=== PATIENT | female | born 1950 | race Caucasian/White ===

== ENCOUNTER → 2017-01-17 | Outpatient (CLI) | payer BC ==
--- NOTE | 2017-01-17 21:08 | KCIC ---
EXAM: Cervical spine MRI without contrast. HISTORY: Pain. TECHNIQUE: Multiplanar, multisequence magnetic resonance imaging of the cervical spine was performed without contrast. COMPARISON: None. FINDINGS: There is a minimal anterolisthesis of C3 on C4 and C4 on C5 and slight reversal of cervical lordosis. The vertebral bodies are normal in height. There is slight disc space narrowing at C5-C6. There are few hemangiomas. No suspicious osseous lesion is seen. The skull base and posterior fossa are unremarkable. There is a prominent central canal within the cervical spinal cord. No hydrosyringomyelia or alternative spinal cord lesion is seen. At C2-C3, there is mild left facet arthropathy. There is no stenosis. At C3-C4, there is no stenosis. At C4-C5, there is no stenosis. At C5-C6, there is a minimal disc bulge and endplate remodeling. There is uncovertebral arthropathy. There is mild bilateral foraminal stenosis. At C6-C7, there is no stenosis. There is a tiny dilated nerve root sheath cyst within the left neural foramen. IMPRESSION: Minimal degenerative change within the cervical spine, described in detail above. This results in mild bilateral foraminal stenosis at C5-C6. Electronically signed by: Gia Isabel MD (01/17/2017 9:05 PM) [facility]
== END | disposition home or self-care (01) ==
LOC: KCIC MRI 16:32
PROVIDERS: ATTEND Physician Assistant Medical
DX: M48.02 Spinal stenosis, cervical region (principal)
CPT/HCPCS: 72141

== ENCOUNTER 2018-10-10 11:04 | Day surgery (SDC) | payer MEDICARE, BC ==
[~2018-10-10] VITALS: Ht 170.2 cm; Wt 85.3 kg
[~2018-10-10 11:04] MED LIST: ACET500T68 PO; ALPR0.5T PO; CARI350T14 PO; CBD OIL PO; CYCL1DRO OP; DULO60CA6 PO; FLUT9.9S NS; HYDR-2765 PO; HYDROmorphone 2 MG/ML VIAL IV PRN; IV RINGERS,LACTATED 1000ML 1,000 ML IV SCH; LEVO112T4 PO; LISD70CA5 PO; MORPHINE SULFATE 2 MG/ML VIAL. IV PRN; OLME40TA12 PO; ONDANSETRON PF 4 MG/2 ML VIAL. IV PRN; fentaNYL PF VIAL 100 MCG/2 ML VIAL IV PRN
[2018-10-10] MEDS ORDERED: BUPIVACAINE-EPI 0.25%-1:200000 MPF 30 ML VIAL. ONE (11:15)
[2018-10-10] MEDS ORDERED: ceFAZolin 2GM PREMIX 2 GM/50 ML BAG IV ONE (12:00)
[2018-10-10] MEDS ORDERED: ONDANSETRON PF 4 MG/2 ML VIAL. ONE (12:11)
[2018-10-10] MEDS ORDERED: FAMOTIDINE 20 MG/2 ML VIAL ONE (12:11)
[2018-10-10] MEDS ORDERED: PROPOFOL 20 ML IV ONE ×2 (12:11→13:13)
[2018-10-10] MEDS ORDERED: DEXAMETHASONE SOD PHOS 4 MG/ML VIAL ONE (12:11)
[2018-10-10] MEDS ORDERED: LIDOCAINE 2% PF 5 ML VIAL. ONE (12:11)
[2018-10-10] MEDS ORDERED: fentaNYL PF VIAL 100 MCG/2 ML VIAL ONE ×4 (12:12→15:28)
[2018-10-10] MEDS ORDERED: MIDAZOLAM HCL/PF 2 MG/2 ML VIAL. ONE (12:12)
[2018-10-10] MEDS ORDERED: ESMOLOL 100 MG/10 ML VIAL. IVP ONE (13:04)
--- NOTE | 2018-10-10 14:03 | PDOC4 ---
Operative Note Operative Note Date of Procedure: October 10, 2018 Preoperative diagnosis: S52.572A Intraarticular fracture of lower end of left radius, initial encounter for closed fracture Postoperative diagnosis: S52.572A Intraarticular fracture of lower end of left radius, initial encounter for closed fracture Procedure: CPT 91681 Open treatment of distal radial intra-articular fracture with internal fixation of 3 or more fragments Surgeon: Prabhakar Soliz MD. Asst.: JOSE ALEJANDRO [place] Anesthesia Type: General EBL: 25 mL Specimens: none Drains: none Complications: none Tourniquet time: 47 minutes Implant Company: [employer] INDICATION FOR PROCEDURE: The patient is a 68 -year-old who fell and had a displaced left distal radius fracture. X-rays showed a displaced intra-articular fracture. I recommended open treatment with internal fixation. We talked about potential risks of surgery such as bleeding, infection, stiffness, need for hardware removal or other potential surgical or anesthetic complications. The patient stated understanding of the risks, benefits and alternatives. Written consent was obtained and she desired to proceed with surgery. PROCEDURE IN DETAIL: The patient was identified in the preoperative holding area. The correct left wrist was marked by me. The patient was taken to the operating room, where a general anesthetic was used. Preoperative antibiotics were given intravenously. A timeout procedure was performed. Tourniquet was used on the upper left arm. The limb was prepped sterilely and sterile drapes were applied. An Esmarch bandage was used to exsanguinate the limb and the tourniquet was inflated to 250 mmHg. The volar approach of Maximus was used distally. Sharp dissection was used and Bovie electrocautery was used as needed for hemostasis. The flexor carpi radialis tendon was retracted ulnarly to protect the median nerve. The brachioradialis was retracted radially to protect the radial artery. My delinquent tax collection assistant used small Hohmann retractors on the radial side of the distal fragment and ulnar side of the proximal fragment to help maintain reduction. A Weitlaner retractor was also placed. Subperiosteal dissection of the pronator quadratus was performed after an L incision was made and the muscle was reflected across the fracture site. The fracture was easily identified but markedly displaced, comminuted and unstable. I performed a reduction first using a [place] elevator to disimpact the fragments, and using longitudinal traction, and volar to palmar compression, the fracture was able to be reduced including the intra-articular reduction as confirmed on the image intensifier. The reduction was stabilized with a K wire prior to plate application. The small image intensifier device was used to check the reduction, and I used the image intensifier throughout the case and interpreted all of the images myself. I then applied a volar plate, placed a single screw, and again checked the position of the plate on the image intensifier. I adjusted the plate as needed for satisfactory alignment and fixation. I placed a single cortical screw in the oval hole for fixation of the plate to the bone and buttressed against the volar displacement of the original fracture. I placed additional locking screws distally and locking screws proximally and I confirmed the reduction with the image intensifier. Due to the poor bone quality, the original fixation screw in the shaft had allowed the plate to move slightly, and I needed to revise the distal fixation and re-aligned the plate, and then reapplied the distal screws. Final locking screws were placed in the proximal portion of the plate, and into the shaft. After satisfactory reduction and satisfactory fixation with all the screws, final images were taken. Copious irrigation was used. The tourniquet was released and Bovie electrocautery was used for hemostasis. Bupivacaine 0.25% with epinephrine was injected. The incision was closed with 3-0 Vicryl in the subcutaneous tissues and 3-0 Prolene in the skin. My delinquent tax collection assistant did the skin closure. Xeroform and a sterile dressing and a volar splint were applied. Needle and sponge counts were correct. There were no apparent complications PRABHAKAR SOLIZ MD October 10, 2018 14:03
[2018-10-10] MEDS ORDERED: SEVOFLURANE > 120 MINUTES. IH ONE (14:05)
[2018-10-10] MEDS: fentaNYL PF VIAL 100 MCG/2 ML VIAL IV PRN ×3 (14:44→15:42)
[2018-10-10] MEDS ORDERED: PROCHLORPERAZINE 10 MG/2 ML VIAL. ONE (15:01)
[2018-10-10] MEDS: PROCHLORPERAZINE 10 MG/2 ML VIAL. IV PRN ×2 (15:04→15:42)
[2018-10-10 16:21] VITALS: BP 175/106
== END 2018-10-10 16:44 | disposition home or self-care (01) ==
LOC: SURG 11:04
PROVIDERS: ATTEND Orthopaedic Surgery
DX: S52.572A Other intraarticular fracture of lower end of left radius, initial encounter for closed fracture (principal); W19.XXXA Unspecified fall, initial encounter; E03.9 Hypothyroidism, unspecified; I10 Essential (primary) hypertension; F31.9 Bipolar disorder, unspecified; Z98.890 Other specified postprocedural states; Z87.891 Personal history of nicotine dependence; Z72.89 Other problems related to lifestyle; Z88.1 Allergy status to other antibiotic agents; Z88.5 Allergy status to narcotic agent; Z88.8 Allergy status to other drugs, medicaments and biological substances; Y93.89 Activity, other specified; Y92.89 Other specified places as the place of occurrence of the external cause; Y99.8 Other external cause status
CPT/HCPCS: 25609; A7015; C1713; J0696; J0780; J1100; J2001; J2250; J2405; J2704; J3010; J3490; J7120

== ENCOUNTER → 2019-05-02 | Day surgery (SDC) | payer BC ==
[~2019-05-02] MED LIST changes: -HYDROmorphone 2 MG/ML VIAL IV PRN; -IV RINGERS,LACTATED 1000ML 1,000 ML IV SCH; +LEVO88TA4 PO; -MORPHINE SULFATE 2 MG/ML VIAL. IV PRN; -ONDANSETRON PF 4 MG/2 ML VIAL. IV PRN; +OXYC1TAB15 PO; +PROPOFOL 40 ML IV ONE; -fentaNYL PF VIAL 100 MCG/2 ML VIAL IV PRN
[2019-05-02] MEDS: IV RINGERS,LACTATED 1000ML 1,000 ML IV SCH (08:16)
[2019-05-02 09:35] VITALS: BP 125/84
--- NOTE | 2019-05-02 11:47 | CONS ---
DATE OF CONSULTATION: 05/02/2019 REFERRING PHYSICIAN: NICOLE Chavez. HISTORY OF PRESENT ILLNESS: This is a 69-year-old female with past medical history that is significant for anxiety, depression, irritable bowel syndrome, diverticulosis, hypertension, SLE, is seen with change in bowel habits. She has had increased constipation as well as diarrhea. She does have to rock when she has her bowel movements suggesting a rectocele, which has been slightly improved with squatting body. In addition to this, she has had dyspepsia with heartburn. With continued issues, consultation and procedures were requested. PAST MEDICAL HISTORY: Hypertension, hyperlipidemia, hypothyroidism, SLE, diverticulosis, and osteoarthritis. ALLERGIES: ____. MEDICATIONS: Include Xanax, Restasis, Cymbalta, Flonase, hydrocodone, levothyroxine, Vyvanse, Benicar, oxycodone, and CBD oil. FAMILY AND SOCIAL HISTORY: Heart disease and stroke. SOCIAL HISTORY: She is a nonsmoker and occasional social drinker. PAST SURGICAL HISTORY: Hernia repair, tonsillectomy, lysis of adhesions, appendectomy, deviated septum, sinus surgery, laparoscopy, and eye surgery. REVIEW OF SYSTEMS: Per records. PHYSICAL EXAMINATION: VITAL SIGNS: Temperature is 97.1, pulse 74, respirations 18, pulse oximetry is 97%. LUNGS: Clear. CARDIOVASCULAR: Reveals an S1 and S2 without S3, S4 or appreciable murmur. ABDOMEN: Reveals a soft abdomen with normoactive bowel sounds and multiple surgical incisions. Diffuse tenderness. EXTREMITIES: Reveals no cyanosis, clubbing, or edema. IMPRESSION: Diffuse abdominal pain, change in bowel habits, etiology to be determined, celiac disease, inflammatory bowel disease, colon cancer, rectocele, diverticular disease with stricture in the differential; therefore, recommend upper endoscopy and colonoscopy to further assess. Risks and benefits have been discussed with the patient and she is willing to proceed at this time. HUEY MCKENZIE MD DR: JES/nts JOB#: [id number] / [id number]
== END | disposition home or self-care (01) ==
LOC: ENDOS 07:26
PROVIDERS: ATTEND Internal Medicine Gastroenterology
DX: R19.4 Change in bowel habit (principal); K64.0 First degree hemorrhoids; K57.30 Diverticulosis of large intestine without perforation or abscess without bleeding; K29.50 Unspecified chronic gastritis without bleeding; I10 Essential (primary) hypertension; E78.5 Hyperlipidemia, unspecified; E03.9 Hypothyroidism, unspecified; M32.9 Systemic lupus erythematosus, unspecified; M19.90 Unspecified osteoarthritis, unspecified site; Z79.899 Other long term (current) drug therapy; Z82.49 Family history of ischemic heart disease and other diseases of the circulatory system; Z82.3 Family history of stroke; Z98.890 Other specified postprocedural states; Z90.49 Acquired absence of other specified parts of digestive tract
CPT/HCPCS: 43235; 45378; J2704